=== PATIENT | male | born 1955 | race Caucasian/White ===

== ENCOUNTER 2018-06-28 10:07 | Emergency (ER) | payer OTHER ==
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
[2018-06-28] MEDS ORDERED: Ketorolac Tromethamine 60 MG/2 ML VIAL ONE (12:10)
[2018-06-28] MEDS ORDERED: Acetaminophen 500 MG TAB ONE (12:10)
== END 2018-06-28 12:27 | disposition home or self-care (01) ==
LOC: ERS 10:07
DX: S02.2XXA Fracture of nasal bones, initial encounter for closed fracture (principal); S31.139A Puncture wound of abdominal wall without foreign body, unspecified quadrant without penetration into peritoneal cavity, initial encounter; S00.83XA Contusion of other part of head, initial encounter; S51.812A Laceration without foreign body of left forearm, initial encounter; F17.210 Nicotine dependence, cigarettes, uncomplicated; Y00.XXXA Assault by blunt object, initial encounter
CPT/HCPCS: 70450; 70486; 72125; 96372; J1885

== ENCOUNTER 2018-07-12 12:10 | Day surgery (SDC) | payer OTHER ==
[2018-07-11 13:30] VITALS: BMI 33.5
[2018-07-12] MEDS ORDERED: Oxymetazoline HCl 0.05% ( 15 ML ) ONE ×2 (13:36→14:39)
[2018-07-12] MEDS ORDERED: Bacitracin Zinc Ointment 30 gm TUBE ONE (14:40)
[2018-07-12] MEDS ORDERED: Lidocaine 1% w/Epinephrine 1:100K 30 ML VIAL ONE (14:40)
[2018-07-12] MEDS ORDERED: Fentanyl 250 MCG/5 ML VIAL ONE (14:41)
[2018-07-12] MEDS ORDERED: Midazolam HCl 2 mg/2 ml Vial ONE (14:41)
[2018-07-12] MEDS ORDERED: Fentanyl 100 MCG/2 ML VIAL ONE (15:45)
[2018-07-12] MEDS ORDERED: Glycopyrrolate 0.2 MG/ML 5 ML SYRINGE ONE (17:28)
[2018-07-12] MEDS ORDERED: Ondansetron PF 4 MG/2 ML Vial ONE (17:28)
[2018-07-12] MEDS ORDERED: Dexamethasone 20 MG/5 ML VIAL ONE (17:28)
[2018-07-12] MEDS ORDERED: Lidocaine 1% PF 5 ML VIAL ONE (17:28)
[2018-07-12] MEDS ORDERED: PROPOFOL 200 MG/20 ML VIAL ONE (17:28)
--- NOTE | 2018-07-13 13:58 | OP ---
DATE OF PROCEDURE: 07/12/2018 PREOPERATIVE DIAGNOSES: 1. Chronic rhinosinusitis. 2. Nasal septal deviation. 3. Bilateral inferior turbinate hypertrophy. 4. Nasal obstruction. 5. Closed nasal fracture. SURGEON: Tutu Carter M.D. ESTIMATED BLOOD LOSS: 50 mL COMPLICATIONS: None. ANESTHESIA: GETA. PROCEDURES: 1. Bilateral endoscopic sinus surgery, total ethmoidectomies. 2. Bilateral endoscopic sinus surgery, maxillary .
--- NOTE | 2018-07-14 13:09 | OP ---
DATE OF PROCEDURE: 07/12/2018 PREOPERATIVE DIAGNOSES: 1. Chronic rhinosinusitis. 2. Nasal septal deviation. 3. Bilateral inferior turbinate hypertrophy. 4. Closed nasal fracture. POSTOPERATIVE DIAGNOSES: 1. Chronic rhinosinusitis. 2. Nasal septal deviation. 3. Bilateral inferior turbinate hypertrophy. 4. Closed nasal fracture. PROCEDURES: 1. Bilateral endoscopic sinus surgery, total ethmoidectomies 2. Bilateral endoscopic sinus surgery, maxillary antrostomies. 3. Bilateral endoscopic sinus surgery, frontal sinusotomies. 4. Nasal septoplasty. 5. Bilateral inferior turbinate submucosal resection. 6. Closed reduction nasal fracture. SURGEON: Tutu Carter M.D. ESTIMATED BLOOD LOSS: 50 mL. COMPLICATIONS: None. ANESTHESIA: GETA. PROCEDURE IN DETAIL: Patient was taken to the operating room and placed supine on the table. Genera l endotracheal anesthesia was obtained by the Anesthesia staff. Tube was secured in the left lower l ip. Patient was then placed in the beach chair position, and Afrin pledgets were placed in the nasal cavity. Injections of 1% lidocaine with 1:100,000 epinephrine were made into the nasal septum as wel l as the inferior turbinates. Patient was then prepped and draped in standard surgical fashion for n carmen surgery. Following this, the Afrin pledgets were removed. A Daniel incision was made on the le ft nasal septum. Submucoperichondrial dissection was performed. The deviated portions of the septum included portions of the cartilage and the bony septum. These isolated areas were removed using thr ee cutting rongeurs. There was noted to be a large dorsal and caudal strut, left intact for support o f the nose. The mucoperichondrial flaps were then reapproximated using a 4-0 gut stitch. Any straig ht pieces of cartilage were crushed prior to this and placed between the mucoperichondrial flaps. Fo llowing this, the inferior turbinates were then punctured with a submucosal coblation wand, and submu cosal coblations were performed of multiple areas of the inferior portion of the anterior inferior turbinate. Please note that the submucosal microdebrider was used to submucosally resect the anterior and inferi or portions of the inferior turbinates. Following this, inferior turbinates were laterally fractured using a [place] elevator. Following this, the 0 degree scope was advanced into the middle meatus. Th e middle turbinates were identified and were gently medialized using a [place] elevator. Uncinate proc ess was identified. It was anteriorly fractured using the ball-ended probe bilaterally. Following t his, the uncinate process was removed using the 0 degree microdebrider and upbiting Blakesley forceps . Following this, the natural maxillary sinus ostia was identified and was gently widened using the curved microdebrider and straight [place] forceps. Following this, the ethmoidal bulla was identif ied bilaterally and was punctured on its medial and inferior aspect using the microdebrider. Followi ng this, the ethmoidal bulla was removed using the microdebrider and upbiting Blakesley forceps. The grand lamella was then identified and was then punctured into the posterior ethmoidal cells. Workin g from posterior to anterior, the ethmoidal cells were opened in a mucosal-sparing technique. Follow ing this, the 30-degree endoscope and the 40-degree microdebrider blade was used to identify and open the frontal recess cells as well as identify and widen the frontal sinus ostia bilaterally. Followi ng this, the nasal elevators were used to remobilize the nasal bones bilaterally and replace into the ir normal symmetric anatomic position. Following this, the nasal cavity was irrigated. MeroPacks we re placed in the middle meatus. Varghese splints were placed and secured internally and external [place] splint was placed on the nose externally. The patient tolerated the procedure well.
--- NOTE | 2018-07-15 10:30 | EKG ---
Test Reason : PREOP Blood Pressure : / mmHG Vent. Rate : 061 BPM Atrial Rate : 061 BPM P-R Int : 116 ms QRS Dur : 084 ms QT Int : 422 ms P-R-T Axes : 030 -14 037 degrees QTc Int : 424 ms Normal sinus rhythm Normal ECG No previous ECGs available Confirmed by DR. Alejandro MCNEAL ([id number]) on 07/15/2018 10:30:08 AM Referred By: MEGHNA Confirmed By:DR. Alejandro MCNEAL
== END 2018-07-12 16:52 | disposition home or self-care (01) ==
LOC: SDC 12:10
PROVIDERS: ATTEND Otolaryngology Plastic Surgery within the Head & Neck
PROC: 099R8ZZ Drainage of Left Maxillary Sinus, Via Natural or Artificial Opening Endoscopic (ICD-10-PCS; principal; 2018-07-12)
PROC: 0NSBXZZ Reposition Nasal Bone, External Approach (ICD-10-PCS; principal; 2018-07-12)
PROC: 099T8ZZ Drainage of Left Frontal Sinus, Via Natural or Artificial Opening Endoscopic (ICD-10-PCS; principal; 2018-07-12)
PROC: 09TU8ZZ Resection of Right Ethmoid Sinus, Via Natural or Artificial Opening Endoscopic (ICD-10-PCS; principal; 2018-07-12)
PROC: 09SM0ZZ Reposition Nasal Septum, Open Approach (ICD-10-PCS; principal; 2018-07-12)
PROC: 09TV8ZZ Resection of Left Ethmoid Sinus, Via Natural or Artificial Opening Endoscopic (ICD-10-PCS; principal; 2018-07-12)
PROC: 099Q8ZZ Drainage of Right Maxillary Sinus, Via Natural or Artificial Opening Endoscopic (ICD-10-PCS; principal; 2018-07-12)
PROC: 09SL8ZZ Reposition Nasal Turbinate, Via Natural or Artificial Opening Endoscopic (ICD-10-PCS; principal; 2018-07-12)
PROC: 099S8ZZ Drainage of Right Frontal Sinus, Via Natural or Artificial Opening Endoscopic (ICD-10-PCS; principal; 2018-07-12)
DX: J32.4 Chronic pansinusitis (principal); J34.2 Deviated nasal septum; J34.3 Hypertrophy of nasal turbinates; S02.2XXA Fracture of nasal bones, initial encounter for closed fracture; Y09 Assault by unspecified means
CPT/HCPCS: 93005; 93010; 96374; J1100; J2001; J2250; J2405; J2704; J3010